=== PATIENT | female | born 1950 | race Caucasian/White ===

== ENCOUNTER 2019-12-25 09:47 | Emergency (ER) | payer MEDICARE ==
--- OUTSIDE RECORDS SUMMARY | 2019-12-25 09:59 | XMS REPORT | Continuity of Care Document ---
:1950 External Reference #:[id number] Author Name XAVI Wills (transmitted by agent of provider Jerson Kelly) Address [address] [place] [address] Care Team Providers Name Role Phone Chantel García RPA - Medical Care Team Information Goodwill Ambassador [phone] Saurav Johnson M.D. - Gastroenterology Care Team Information Goodwill Ambassador [phone] Matt Muller DPM - Game Operator Care Team Information Goodwill Ambassador Problems Active Problems Provider Date Essential hypertension XAVI Wills Onset: 02/26/2019 Degeneration of cervical intervertebral disc XAVI Wills Onset: 03/2019 Note: C5-C6-C7 Arthritis of first metatarsophalangeal joint XAVI Wills Onset: 03/2019 of right foot Social History Type Date Description Comments Sex Unknown ETOH Use 1-2 glasses of wine per day Tobacco Use Start: Unknown End: Patient is a former smoker Quit 2003 Unknown Smoking Status Reviewed: 12/10/19 Patient is a former smoker Quit 2003 Exercise Type/Frequency Does not exercise Allergies, Adverse Reactions, Alerts Active Allergies Reaction Severity Comments Date Cefdinir 02/26/2019 Augmentin 02/26/2019 Azithromycin 02/26/2019 Medications Active Medications SIG Qnty Indications Ordering Date Provider Metoprolol 1 by mouth every day 90tabs I10 Guillermo 12/10/2019 Succinate ER MD Renny 25mg Tablets ER 24HR Estradiol Vaginal for intravaginal use 3Months Guillermo 02/26/2019 Cream 5MG/Gram twice a week MD Renny Estriol Cream 1ml to rotating 3Months Guillermo 02/26/2019 5MG/ML sites daily MD Renny Albizia Guillermo 02/26/2019 MD Renny Immuplex Guillermo 02/26/2019 MD Renny Vitamin C 1 by mouth every day 90caps Guillermo 02/26/2019 500mg MD Renny Capsules Vitamin E Complex 1 po qd Guillermo 02/26/2019 MD Renny Vitamin B-Complex 1 by mouth every day Guillermo 02/26/2019 MD Renny Tablets [place]-3 Fish Oil Guillermo 02/26/2019 MD Renny Laticacid Yeast Guillermo 02/26/2019 MD Renny Glucosamine 1500 1 by mouth every day 30caps 02/26/2019 Complex MD Renny 1500Com Capsules [place]ia Serrta EX 02/26/2019 MD Renny Proctozone-HC use after bowel 30gm Guillermo 02/26/2019 2.5% movement and every MD Renny Cream night at bedtime Irbesartan 1 by mouth every day 90tabs Guillermo 02/26/2019 75mg MD Renny Tablets Probiotic 1 by mouth every day 30caps Guillermo 02/26/2019 Capsules MD Renny Calcium 500 + D 1 by mouth every day 180tabs Guillermo 02/26/2019 MD Renny [id number] Tablets Synthroid 1 by mouth every day 90tabs Guillermo 02/26/2019 88mcg MD Renny Tablets Tobramycin-Dexameth 3x per day Unknown asone 0.3-0.1% Suspension History Medications Spironolactone 1 tab by 90tabs I10 Guillermo Lawson, 09/25/2019 - 25mg Tablets mouth every MD 12/10/2019 day Medications Administered in Office Medication SIG Qnty Indications Ordering Provider Date Td(Adult),Unspecified Unknown 03/29/2015 Injection Immunizations Description No Information Available Vital Signs Date Vital Result Comment 12/10/2019 1:15pm Height 59.9 inches 4'11.90" Weight 142.19 lb Heart Rate 92 /min BP Systolic Sitting 142 mmHg BP Diastolic Sitting 76 mmHg O2 % BldC Oximetry 97 % BMI (Body Mass Index) 27.9 kg/m2 09/25/2019 1:10pm Height 59.9 inches 4'11.90" Weight 143.38 lb Heart Rate 90 /min BP Systolic Sitting 140 mmHg BP Diastolic Sitting 80 mmHg O2 % BldC Oximetry 97 % BMI (Body Mass Index) 28.1 kg/m2 Results Description No Information Available Procedures Date Code Description Status 01/12/2017 [id number] Mammogram Completed 07/30/2014 713506308 Bone Mineral Density Test Completed 10/24/2001 [id number] Colonoscopy Completed Medical Devices Description No Information Available Encounters Type Date Location Provider Dx Diagnosis Office Visit 09/25/2019 [facility] Chantel [place], I10 Essential ( primary[place] 1:00p [place] hypertension L23.2 Allergic contact dermatitis due to cosmetics Office Visit 06/26/2019 1:00p [facility] Primary Chantel I10 Essential (primary ) Care [place] hypertension F43.20 Adjustment disorder, unspecified Assessments Date Code Description Provider 12/10/2019 E55.9 Vitamin D deficiency, unspecified Chantel [place] 12/10/2019 I10 Essential (primary) hypertension Chantel [place] 12/10/2019 E03.9 Hypothyroidism, unspecified Chantel [place] 12/10/2019 Z12.31 Encounter for screening mammogram for Chantel [place] malignant neoplasm of breast 09/25/2019 I10 Essential (primary) hypertension Chantel [place] 09/25/2019 L23.2 Allergic contact dermatitis due to cosmetics Chantel [place] 06/26/2019 I10 Essential (primary) hypertension Chantel [place] 06/26/2019 F43.20 Adjustment disorder, unspecified [place]el [place] Plan of Treatment Future Appointment(s):02/12/2020 1:00 pm - Chantel García PA at [facility]12/10/2019 - Chantel [place], PAE55.9 Vitamin D deficiency, unspecifiedNew Labs:Vitamin D Total 25(Oh), Ordered: 12/10/19CBC Auto Diff, Ordered: I10 Essential (primary) hypertensionNew Medication:Metoprolol Succinate ER 25 mg - 1 by mouth every dayNew Labs:Comp Metabolic Panel, Ordered: Comments:Current medication(s): Irbesartan 75mg daily, Spironolactone 25mg daily Discontinue Spironolactone Substitute metoprololFollow up:2 stnahtC40.9 Hypothyroidism, unspecifiedNew Labs:TSH (Thyroid Stim Horm), Ordered : 12/10/19Free T4 (Free Thyroxine), Ordered: 12/10/19Comments:Current supplementation: Synthroid (CARLOS) 88mcg kxhyhI49.31 Encounter for screening mammogram for malignant neoplasm of breast Functional Status Description No Information Available Mental Status Description No Information Available Referrals Description No Information Available
[2019-12-25 10:07] VITALS: BP 152/72
--- NOTE | 2019-12-25 10:14 | UC ---
FLU HPI - HPI Summary HPI Summary: 69yo female presenting with cough x4 days. Patient also notes body aches, fatigue, and some diarrhea. Denies nasal congestion and sore throat. Denies sob but states "it feels like burning in my chest when I have coughing fits." States cough is worse at night. Cough is "mostly nonproductive but feels like I can cough something up." Denies n/v. Denies fevers. Eating and drinking normally. Started taking mucinex today. - History of Current Complaint Chief Complaint: UCGeneralIllness Stated Complaint: COUGH Hx Obtained From: Patient Hx Last Menstrual Period: Late age 40's Pain Intensity: 0 - Allergy/Home Medications Allergies/Adverse Reactions: Allergies Allergy/AdvReac Type Severity Reaction Status Date / Time amoxicillin [From Augmentin] Allergy Vomiting Verified 12/25/19 10:08 clavulanic acid Allergy Vomiting Verified 12/25/19 10:08 [From Augmentin] Home Medications: Home Medications Levothyroxine TAB* [Synthroid 88 MCG TAB*] 88 mcg PO 0800 06/16/13 [History Confirmed 12/25/19] Multivitamins/Minerals TAB* [Theragran/minerals TAB*] 1 tab PO DAILY 06/16/13 [ History Confirmed 12/25/19] Irbesartan 75 mg PO DAILY 12/25/19 [History Confirmed 12/25/19] Metoprolol Tartrate [Lopressor] 75 mg PO DAILY 12/25/19 [History Confirmed 12/24] PMH/Surg Hx/FS Hx/Imm Hx Cardiovascular History: Hypertension - Surgical History Surgical History: Yes Surgery Procedure, Year, and Place: TUBAL LIGATION, PARTIAL HYSTERECTOMY - Family History Known Family History: Positive: Hypertension - Social History Alcohol Use: Daily Alcohol Amount: 2 glasses of wine Substance Use Type: None Smoking Status (MU): Never Smoked Tobacco Review of Systems All Other Systems Reviewed And Are Negative: Yes Constitutional: Positive: Fatigue Respiratory: Positive: Cough. Negative: Shortness Of Breath Cardiovascular: Positive: Negative Gastrointestinal: Positive: Diarrhea Musculoskeletal: Positive: Myalgia Neurological/Mental Status: Positive: Negative Physical Exam - Summary Physical Exam Summary: Vital Signs Reviewed: Yes A+Ox3, no distress, well-appearing Eyes: Conjunctiva Clear ENT: Hearing grossly normal, TM x 2 clear, moist, uvula midline, no exudate, no erythema Neck: Positive: Supple Respiratory: Positive: No respiratory distress, No accessory muscle use + CTA throughout no w/r Cardiovascular: RRR nl s1, s2 no m/r Musculoskeletal Exam: DIAZ x 4 without difficulty Neurological: Positive: Alert Psychological: Positive: age appropriate behavior Skin: Positive: no rash, no ecchymosis Vital Signs: Initial Vital Signs Temp 98.0 F 12/25/19 10:01 Pulse 85 12/25/19 10:01 Resp 14 12/25/19 10:01 BP 152/72 12/25/19 10:01 Pulse Ox 97 12/25/19 10:01 Lab Results 12/25/19 Range/Units 10:28 Influenza A (Rapid) Negative (Negative) Influenza B (Rapid) Negative (Negative) Flu Course/Dx - Course Course Of Treatment: Negative rapid flu. Patient well-appearing, VS normal, and lung sounds clear. I discussed viral illness and acute bronchitis with the patient. She declined treatment with an inhaler. I educated her on symptomatic treatment and instructed to follow up with pcp if symptoms persist. Educated on s/s of worsening respiratory illness and instructed to go to ED if any occur. Patient voiced understanding and agreed with treatment plan. - Differential Dx/Diagnosis Differential Diagnosis/HQI/PQRI: Bronchitis, Influenza, Upper Respiratory Infection Provider Diagnosis: Acute bronchitis Discharge ED - Sign-Out/Discharge Documenting (check all that apply): Patient Departure All imaging exams completed and their final reports reviewed: No Studies - Discharge Plan Condition: Stable Disposition: HOME Patient Education Materials: Acute Bronchitis (ED) Referrals: Chantel García PA [Primary Care Provider] - 1 Week Additional Instructions: Your flu test was negative. Your symptoms are likely viral and should resolve without treatment. Continue with mucinex and increase your fluid intake. A humidifier at night may also help alleviate symptoms. Follow up with your primary care provider if symptoms do not improve within 7- 10 days. Go to the emergency room with any new or worsening symptoms. - Billing Disposition and Condition Condition: STABLE Disposition: Home
[2019-12-25 10:40] LABS: Influenza A Molecular Negative (Negative); Influenza B Molecular Negative (Negative)
== END 2019-12-25 10:51 | disposition home or self-care (01) ==
LOC: UCCORT 09:47
DX: J20.9 Acute bronchitis, unspecified (principal); I10 Essential (primary) hypertension; R19.7 Diarrhea, unspecified; M79.10 Myalgia, unspecified site; Z88.0 Allergy status to penicillin; Z88.1 Allergy status to other antibiotic agents; Z79.899 Other long term (current) drug therapy
CPT/HCPCS: 99211; G0463